=== PATIENT | male | born 1955 | race Asian ===

== ENCOUNTER 2018-06-19 12:44 | Day surgery (SDC) | payer MEDICARE, OTHER, SELFPAY ==
[2018-06-19 13:35] VITALS: BP 151/81; PULSE 78; RESP 15; TEMP 36.2; O2SAT 99; BMI 25.8
--- NOTE | 2018-06-19 15:33 | PM.HP.1 ---
History of Present Illness Date Patient Seen: 06/19/18 Chief complaint: 36209 SCREENING COLONOSCOPY Narrative: 63 yr old male here for interval colon cancer screening colonoscopy. no history of polyps. last colonoscopy 10 yrs ago. Denies abdominal pain, bloating, melena, bleeding, change in caliber of stools. Patient History Family & Social History Family History: Reviewed 06/19/18 by Americo Zambrano MD Social History: household members spouse Meds Allergies Allergy/AdvReac Type Severity Reaction Status Date / Time No Known Drug Allergies Allergy Verified 06/19/18 13:27 Review of Systems Review of Systems All systems reviewed & are unremarkable except as noted in HPI and below Exam Vital Signs (past 8 hours): - 06/19/18 13:35 Temperature 97.1 F L Pulse Rate 78 Respiratory Rate 15 Blood Pressure 151/81 H Pulse Oximetry 99 Oxygen Delivery Method Room Air Const General: cooperative, healthy appearing and comfortable Eyes Sclera: sclerae normal Neck Neck: supple Chest Chest: normal inspection of the chest Resp Effort & Inspection: normal respiratory effort Cardio Rate: regular rate Rhythm: regular rhythm GI Inspection: normal to inspection Palpation: soft Skin General: no rashes or lesions noted Neuro General: alert and awake Motor: no movement abnormalities noted Extrem General: normal to inspection Psych Appearance: grossly normal Mood: congruent mood Affect: normal affect Thought Process: normal Thought Content: normal Judgment: judgment good Assessment & Plan Plan: Assessment/Plan Narrative: colon cancer screening colonoscopy. procedure, benefits, risks including bleeding and infection reviewed with patient.
[2018-06-19] MEDS: fentaNYL 250 MCG/5 ML INJ IV (16:00)
[2018-06-19] MEDS: MIDAZOLAM 5 MG/5 ML VIAL IV (16:00)
[2018-06-19] MEDS: diphenhydrAMINE 50 MG/ML VIAL IM (16:02)
--- NOTE | 2018-06-19 16:27 | PM.OP.ENDO ---
Operative Date/Time/Diagnoses Date of procedure: 06/19/18 Pre-op diagnosis: Colon cancer screening Post-op diagnosis: same Procedure & Clinicians Study performed: Colonoscopy Same procedure as scheduled: Yes Indications: Colon cancer interval screening. last colonoscopy 10 yrs ago. no history of polyps. Surgeon: Americo Zambrano Procedure Notes SCOAP/Timeout: done Procedure in detail: Patient taken from preoperative area to endoscopy suite with adequate iv access. Timeout was performed. IV sedation sedation was titrated throughout the case while patient was continuously monitored. Inspection of anal orifice revealed no skin lesions. Digital exam failed to palpate any lesions. A well lubricated Fuji colonoscope was gently introduced through the anus and advanced to the cecum using the dither-torque technique. Confirmation of reaching the cecum was acheived by identifying the appendiceal orifice and ileocecal valve. Scattered few diverticuli were seen in the right colon and sigmoid colon. Residual insufflation was evacuated. Patient tolerated procedure well and was transferred to PACU in stable condition. Scope withdrawal time: 10min Sedation minutes: 19 Findings: diverticulosis (right colon and sigmoid colon) Specimen(s): none sent Complications: none Recommendations: Colonscopy in 10 years Disposition: same day surgery
[2018-06-19 16:32] VITALS: BP 123/82; PULSE 63; RESP 12; TEMP 36.2; O2SAT 100
[2018-06-19 16:37] VITALS: BP 120/82; PULSE 64; RESP 12; O2SAT 99
[2018-06-19 16:42] VITALS: BP 116/82; PULSE 62; RESP 14; O2SAT 98
[2018-06-19 16:47] VITALS: BP 136/89; PULSE 62; RESP 18; O2SAT 98
[2018-06-19 16:57] VITALS: BP 151/77; PULSE 62; RESP 16; O2SAT 100
== END 2018-06-19 17:08 | disposition home or self-care (01) ==
PROVIDERS: Visit Provider Surgery
PROC: 0DJD8ZZ Inspection of Lower Intestinal Tract, Via Natural or Artificial Opening Endoscopic (ICD-10-PCS; CPT 45378; principal; 2018-06-19 13:45)
DX: Z12.11 Encounter for screening for malignant neoplasm of colon (principal); K57.30 Diverticulosis of large intestine without perforation or abscess without bleeding
CPT/HCPCS: G0121; 99152; J1200; J2250; J3010

== ENCOUNTER → 2022-04-23 09:51 | Outpatient (CLI) | payer MEDICARE, OTHER, SELFPAY ==
--- NOTE | 2022-04-23 09:53 | DI.CT.S_ITS ---
PROCEDURE: CT ABDOMEN PELVIS WO/W CON INDICATIONS: Asymptomatic microscopic hematuria TECHNIQUE: Optional 5 mm thick noncontrast images acquired from the diaphragm to the symphysis pubis. After the administration of intravenous contrast, 5 mm thick images acquired from the diaphragm to the symphysis pubis after a 10-minute delay. 2 mm thick coronal and sagittal reformats were then performed of the kidneys and ureters. For radiation dose reduction, the following was used: automated exposure control, adjustment of mA and/or kV according to patient size. COMPARISON: [facility], CT, KIDNEY/ URETER/BLADDER, 06/17/2007, 8:16. FINDINGS: Image quality: Excellent. Lung bases: Lung bases are clear. Heart size is normal. Urinary system: Both kidneys are normal in size, without hydronephrosis. A 2 mm nonobstructing calculus is present within the lower pole of the right kidney. No left nephrolithiasis. No ureterolithiasis or hydroureter. No perinephric fat stranding. There is normal bilateral renal enhancement. There is a low-density right renal cortical cyst. Renal calyces appear normal in morphology when filled with contrast. Opacified portions of both ureters demonstrate normal caliber. Bladder wall thickness is normal. No calcified bladder stones. Other solid organs: Liver is normal in size and enhancement. Multiple subcentimeter calcified stones are layered in the gallbladder fundus. No gallbladder wall thickening or pericholecystic fluid. Biliary system is non dilated. Pancreas enhances normally. Spleen is normal in size and enhancement. No adrenal nodules. Peritoneum and bowel: Bowel loops demonstrate normal wall thickness and caliber. There is a small duodenal diverticulum posterior to the 3rd portion of the duodenum which is filled with gas and food debris. The appendix is thin walled and gas filled. There are scattered diverticular outpouchings throughout the colon. No mucosal thickening or pericolonic fat stranding to suggest acute diverticulitis. No free fluid or air. Nodes and vessels: No retroperitoneal or mesenteric adenopathy by size criteria. Aorta and inferior vena cava are normal in size. Abdominal wall: No ventral hernias. Pelvis: No pathologic free pelvic fluid. No inguinal hernias or adenopathy. Bones: No suspicious bony lesions. No vertebral body compression fractures. Stable bone island is present within the right femoral head. IMPRESSION: 1. Nonobstructive right nephrolithiasis. 2. No left nephrolithiasis, hydronephrosis, hydroureter, or ureterolithiasis. No suspicious enhancing renal mass lesions. 3. Colonic diverticulosis. No acute diverticulitis. Normal appendix. 4. Debris-filled small duodenal diverticulum. Dictated by: Sammie Do M.D. on 04/23/2022 at 12:46 Approved by: Sammie Do M.D. on 04/23/2022 at 12:53
[2022-04-23 11:35] LABS: BUN Creatinine Ratio 18.2 (6-22); Blood Urea Nitrogen 14 mg/dL (9-20); Calcium 9.1 mg/dL (8.4-10.2); Carbon Dioxide 27 mmol/L (22-32); Chloride 102 mmol/L (98-107); Estimated Glomerular Filt Rate > 60 mL/min (>60); Glucose 154 mg/dL (80-110); HEMOLYSIS 16 (0-50); Potassium 3.8 mmol/L (3.4-5.1); Sodium 141 mmol/L (137-145)
[2022-04-23 12:06] LABS: Prostate Specific Antigen 1.65 ng/mL (0.10-4.00)
== END ==
PROVIDERS: PCP Student in an Organized Health Care Education/Training Program; Referring Provider Urology; Visit Provider Urology
DX: N40.1 Benign prostatic hyperplasia with lower urinary tract symptoms (principal); N20.0 Calculus of kidney; R35.1 Nocturia; K57.90 Diverticulosis of intestine, part unspecified, without perforation or abscess without bleeding
CPT/HCPCS: 36415; 74178; 80048; 84153; Q9967

== ENCOUNTER → 2023-07-11 06:31 | Outpatient (CLI) | payer MEDICARE, OTHER, SELFPAY ==
--- NOTE | 2023-07-11 | DI.ECHO.S_ITS ---
[place] +---------+ [facility] +---------+ : : [address] : : : : [id number] : : : : Phone: [phone]+ Echocardiogram Report + + :Name: AKIL MARVIN Study Date: 07/11/2023 Height: 68.5 in: :[facility] ReadingLocation: Weight: 166 lb : : Gender: Male BSA: 1.9 m2 : :: 1955 Age: 68 yrs BP: 130/83 mmHg: :Reason For Study: SYSTOLIC MURMUR : :Ordering Physician: VIVIANA, : :YANIQUE Performed By: Yesi Gupta : :Referring: YANIQUE MICHELLE : + + Interpretation Summary The left ventricle is normal in size and wall thickness. The left ventricular ejection fraction is normal. The ejection fraction is estimated to be 60-65%. The right ventricle is normal in size and function. No significant valvular pathology. The IVC is of normal diameter and collapses greater than 50% with a sniff. This suggests a low right atrial pressure of 3 mm Hg. Procedure: A two-dimensional transthoracic echocardiogram with color flow and Doppler was performed. The study quality was technically adequate. There is no prior echocardiogram noted for this patient. The patient was in sinus rhythm with heart rates between 64-76 bpm during the exam. Left Ventricle: The left ventricle is normal in size and wall thickness. There is no thrombus. The ejection fraction is estimated to be 60-65%. The left ventricular ejection fraction is normal. There are no focal wall motion abnormalities. Diastolic parameters suggest a relaxation abnormality of the left ventricle, consistent with probable normal filling pressures. Right Ventricle: The right ventricle is normal in size and function. Atria: The left atrial size is normal. Right atrial size is normal. There is no Doppler evidence for an interatrial shunt. Mitral Valve: The mitral valve is normal in structure and function. There is trace mitral regurgitation. Aortic Valve: The aortic valve is trileaflet. The aortic valve opens well. There is no aortic valve stenosis. There is trace aortic regurgitation. Tricuspid Valve: The tricuspid valve is normal in structure and function. There is trace tricuspid regurgitation. Pulmonary artery pressures cannot be estimated because of the lack of a measurable TR jet velocity. Pulmonic Valve: The pulmonic valve leaflets are thin and pliable; valve motion is normal. There is trace pulmonic regurgitation. Great Vessels: The aortic root is normal size. The dimensions of the ascending aorta are normal. The IVC is of normal diameter and collapses greater than 50% with a sniff. This suggests a low right atrial pressure of 3 mm Hg. Pericardium/ Pleura There is no pericardial effusion. There is no pleural effusion. MMode/2D Measurements & Calculations LVIDd: 4.6 cm LVOT diam: 2.0 cm LVIDs: 2.7 cm Ao root diam: 3.4 cm FS: 39.7 % asc Aorta Diam: 3.6 cm EPSS: 0.66 cm Ao Arch Diam (Prox Trans): 2.8 cm IVSd: 0.72 cm LVPWd: 0.84 cm LV moses. diameter/BSA (cm/m^2): 2.4 LV sys. diameter/BSA (cm/m^2): 1.4 LA A2 area: 19.6 cm2 RA long axis: 4.9 cm LA A4 area: 14.6 cm2 RA area: 16.5 cm2 LA length (vol): 4.5 cm RA vol: 48.0 ml LA vol: 54.5 ml RA : 25.2 ml/m2 LA vol index: 28.7 ml/m2 IVC diam: 1.5 cm RVD1 (basal): 4.0 cm TAPSE: 2.0 cm Doppler Measurements & Calculations Ao V2 max: 123.9 cm/sec LVOT Max Bradford: 109.7 cm/sec Ao V2 mean: 89.9 cm/sec LV V1 max P.8 mmHg Ao max P.1 mmHg LV V1 VTI: 23.9 cm Ao mean P.5 mmHg MARI(I,D): 2.8 cm2 Ao V2 VTI: 26.0 cm MARI(V,D): 2.7 cm2 sev ratio: 0.92 MARI indexed to BSA (cm^2/m^2): 1.5 MV E max bradford: 65.0 cm/sec PA V2 max: 102.6 cm/sec MV A max bradford: 89.3 cm/sec PA V2 mean: 66.9 cm/sec MV E/A: 0.73 PA mean P.0 mmHg Med Peak E' Bradford: 6.9 cm/sec PA pr(Accel): 39.6 mmHg E/E' med: 9.4 Lat Peak E' Bradford: 8.8 cm/sec E/E' lat: 7.4 E/e' average: 8.4 MV dec time: 0.26 sec SV(LVOT): 72.2 ml Reading Physician:11:09 AM
--- NOTE | 2023-07-11 | DI.US.S_ITS ---
PROCEDURE: US CAROTID DOPPLER BI INDICATIONS: SYSTOLIC MURMUR / SCREENING FOR STENOSIS TECHNIQUE: Color and pulse Doppler interrogation was performed of both carotid systems, with image documentation and velocity measurements. COMPARISON: None. FINDINGS: Stenosis calculations are based on SRU (Society of Radiologists in Ultrasound) criteria. The flow velocities and the arterial waveforms are normal within both carotid arterial systems. Atherosclerotic plaque is seen on both sides. The estimated degree of internal carotid artery stenosis is less than 50%. Antegrade flow is confirmed within both vertebral arteries. IMPRESSION: No hemodynamically significant stenosis is seen. Atherosclerotic plaque is noted bilaterally. Dictated by: Walter Srivastava M.D. on 07/11/2023 at 11:04 Approved by: Walter Srivastava M.D. on 07/11/2023 at 11:04
== END ==
PROVIDERS: PCP Student in an Organized Health Care Education/Training Program; Referring Provider Internal Medicine Cardiovascular Disease; Visit Provider Internal Medicine Cardiovascular Disease
DX: Z13.6 Encounter for screening for cardiovascular disorders (principal); R01.1 Cardiac murmur, unspecified; I65.23 Occlusion and stenosis of bilateral carotid arteries
CPT/HCPCS: 93306; 93880

== ENCOUNTER → 2023-08-06 09:17 | Outpatient (CLI) | payer MEDICARE, OTHER, SELFPAY ==
--- NOTE | 2023-08-06 | DI.NM.S_ITS ---
PROCEDURE: NM REECE PERF SPECT REST & STR Rest and exercise myocardial perfusion SPECT with gated imaging and ejection fraction RADIOPHARMACEUTICAL: 24 mCi Tc-99m sestamibi IV at rest and 24.8 mCi Tc-99m sestamibi IV at peak exercise. A two day-protocol was performed. INDICATIONS: Coronary atherosclerosis due to calcified coronary TECHNIQUE: Radiopharmaceutical was injected at peak stress test, and also at rest. SPECT images were obtained. SPECT myocardial perfusion images were displayed in short axis, horizontal long axis, and vertical long axis views. Gated images were reviewed using [employer] software. COMPARISON: None. CARDIAC STRESS: A standard [place] treadmill exercise tolerance test was performed by the patient under the supervision of an attending staff. The patient exercised for 9 minutes and 0 seconds; functional aerobic impairment (RUI) is -27%. Hemodynamic data: There is normal blood pressure and heart rate response to exercise stress. Patient achieved 108% of maximum predicted heart rate at peak exercise. Symptoms: Patient denied chest pain during exercise. EKG: There were exercise induced moderate horizontal to downsloping ST depressions in the inferior and anterolateral leads; no ectopy. FINDINGS: Raw data: There is good myocardial labeling by radiotracer. No significant motion artifacts. Lnhc-mn-[id number] ratio is 0.22 (normal is less than 0.38 for sestamibi tracer, and less than 0.50 for thallium tracer). Left ventricle function: Gated images demonstrate normal left ventricle wall thickening. No segmental wall motion abnormality. No transient ischemic dilation; TID is 0.97 (normal less than 1.3). The left ventricle resting end-diastolic volume is 91mL. Left ventricle stress ejection fraction is 81%; normal values are above 45%. Myocardial perfusion: There is a mildly intense inferior wall perfusion defect at rest that worsens and extends to the lateral wall with stress but resolves with prone imaging, suggesting artifact. No definite ischemia or infarction. IMPRESSION: Low risk, probably normal treadmill nuclear stress test from inducible ischemia standpoint. 1) There is a mildly intense inferior wall perfusion defect at rest that worsens and extends to the lateral wall with stress but resolves with prone imaging, suggesting artifact. No definite ischemia or infarction. 2) Normal left ventricular ventricular size, wall motion, and systolic function (EF post stress 81%). 3) Exercise induced moderate horizontal to downsloping ST depressions in the inferior and anterolateral leads. These changes are non-specific in the setting of reassuring perfusion images. 4) No angina during the study. 5) Good exercise tolerance (10.1 METs, RUI -27%). Target heart rate reached. 6) Borderline hypertensive response to exercise (resting BP 122/80mmHg, max BP 200/80mmHg). 7) No prior nuclear stress test available for comparison. Dictated by: Lars Smith MD on 08/09/2023 at 16:59 Approved by: Lars Smith MD on 08/09/2023 at 17:04
== END ==
LOC: NUCM 09:18
PROVIDERS: PCP Student in an Organized Health Care Education/Training Program; Referring Provider Internal Medicine Cardiovascular Disease; Visit Provider Internal Medicine Cardiovascular Disease
DX: I25.10 Atherosclerotic heart disease of native coronary artery without angina pectoris (principal); I25.84 Coronary atherosclerosis due to calcified coronary lesion
CPT/HCPCS: 78452; 93017; A9502

== ENCOUNTER → 2025-02-23 08:02 | Outpatient (CLI) | payer MEDICARE, OTHER, SELFPAY ==
[2025-02-23 09:07] LABS: Hematocrit 43.4 % (41-53); Hemoglobin 15.1 g/dL (13.5-17.5); Mean Corpuscular HGB Conc 34.7 % (30-36); Mean Corpuscular Hemoglobin 31.1 PG (26-34); Mean Corpuscular Volume 89.6 fL (80-100); Platelet Count 265 X10^3/uL (150-400)
[2025-02-23 09:29] LABS: Alanine Aminotransferase 27 IU/L (<50); Albumin 4.6 g/dL (3.5-5.0); Albumin Globulin Ratio 1.4 (1.0-2.8); Alkaline Phosphatase 94 U/L (38-126); Blood Urea Nitrogen 18 mg/dL (9-20); Calcium 9.6 mg/dL (8.4-10.2); Carbon Dioxide 25 mmol/L (22-32); Chloride 105 mmol/L (98-107); Cholesterol 106 mg/dL (140-199); Estimated Glomerular Filt Rate > 60 mL/min (>60); Globulin 3.4 g/dL (1.7-4.1); Glucose 108 mg/dL (70-99); HDL Cholesterol 40 mg/dL (40-60); HEMOLYSIS < 15 (0-50); Potassium 4.5 mmol/L (3.4-5.1); Sodium 140 mmol/L (137-145); Total Protein 8.0 g/dL (6.3-8.2); Triglycerides 126 mg/dL (35-150)
== END ==
PROVIDERS: PCP Student in an Organized Health Care Education/Training Program; Referring Provider Student in an Organized Health Care Education/Training Program; Visit Provider Nurse Practitioner
DX: E78.5 Hyperlipidemia, unspecified (principal); I10 Essential (primary) hypertension
CPT/HCPCS: 36415; 80053; 80061; 85027